=== PATIENT | female | born 1990 | race Caucasian/White ===

== ENCOUNTER 2024-11-30 07:17 | Emergency (ER) | payer BC, SELFPAY ==
[2024-11-30 07:17] VITALS: BP 127/80; PULSE 115; RESP 18; TEMP 36.8; O2SAT 98; BMI 43.9
--- NOTE | 2024-11-30 07:22 | EDS_ITS ---
HPI HPI - GI History of Present Illness Chief Complaint: Nausea/Vomiting/Diarrhea Informant: patient Abdominal Pain/Flank Pain Onset: Weeks (2) Context: Gradual Onset Timing: Continuous Quality: Cramping Location: Diffuse Worsened by: - (Worse in the morning) Relieved by: Nothing Nausea/Vomiting/Emesis GI Symptom: Positive for Nausea and Vomiting Onset: Weeks (2) Quality: Positive for Nonbilious; Negative for Blood streaks, Coffee ground or Hematemesis Diarrhea/Melena/Hematochezia GI Symptom: Positive for Diarrhea; Negative for Melena or Hematochezia Onset: Weeks (2) Stool Quality: Positive for Watery Associated Symptoms Associated Symptoms: Negative for Dysuria, Frequency or Hematuria Narrative Narrative: Patient presents with abdominal pain, nausea, vomiting, diarrhea constant for the past couple weeks. Patient states she is unable to get into see her GI doctor. Patient states her pain is constant. Patient describes it as cramping. Patient states it is diffuse across her entire abdomen. Patient admits to some nausea and vomiting. Patient denies any hematemesis or coffee-ground emesis. Patient states her nausea and vomiting is worse in the morning. Patient states her diarrhea is watery. Patient denies any melena or hematochezia. Patient dates her last menstrual period was last week. [facility] Medical History (Updated 11/30/24 @ 10:[address] Miguel Woods, DO) Depression Anxiety Hernia Medical History no medical history no medical history Home Medications ?Medication ?Instructions ?Recorded ?Last Taken ?Type cholestyramine (with sugar) 4 gram 1 ea PO DAILY 11/30 Unknown History powder for susp in a packet clonazepam 0.5 mg tablet 0.5 mg PO DAILY 11/30/24 Unk nown History famotidine 20 mg tablet 20 mg PO DAILY 11/30/24 Unkn own History hydroxyzine HCl 10 mg tablet 10 mg PO TID 11/30/24 Unk nown History hydroxyzine HCl 50 mg tablet 50 mg PO QHS 11/30/24 Unk nown History ibuprofen 800 mg tablet 800 mg PO TID 11/30/24 Unkno wn History lurasidone 40 mg tablet 40 mg PO DAILY 11/30/24 Unkn own History ondansetron HCl 4 mg tablet PO 11/30/24 Unknown Histor y pantoprazole 40 mg tablet,delayed 40 mg PO DAILY 11/30 Unknown History release prazosin 2 mg capsule 2 mg PO QHS 11/30/24 Unknown History promethazine 25 mg rectal mg RI BID 11/30/24 Unknown H istory suppository promethazine 25 mg tablet 25 mg PO Q6H PRN PRN nausea and 11/30/24 Unknown History vomiting spironolactone 50 mg tablet 50 mg PO BID 11/30/24 Unkn own History Allergy/AdvReac Type Severity Reaction Status Date / Time No Known Allergies Allergy Verified 11/30/24 07:18 Family History no significant family his Surgical History Hx of cholecystectomy Social History (Updated 11/30/24 @ 07:[address] Miguel Woods, DO) Smoking Status: Current every day smoker tobacco type: e-cigarettes Electronic Cigarette Use: with nicotine ROS ROS ED Constitutional Constitutional ED: Denies chills or fever(s) Eyes Eyes: Denies blurry vision or change in vision ENT ENT ED: Denies rhinorrhea or sore throat Cardiovascular Cardiovascular: Denies chest pain or palpitations Respiratory/Chest Respiratory/Chest: Denies cough or dyspnea Gastrointestinal Gastrointestinal: Reports abdominal pain, diarrhea, nausea and vomiting; Denies melena Genitourinary Genitourinary ED: Denies dysuria or hematuria Musculoskeletal Musculoskeletal: Denies back pain or neck pain Integumentary Denies abscess or rash Neurologic Neurologic: Denies headache(s) or weakness Allergic/Immunologic Allergic/Immunologic ED: Denies mouth swelling or urticaria EXAM Physical Exam Const Vital Signs: 11/30/24 07:17 11/30/24 08:57 11/30/24 10:00 Temperature 98.3 F Temperature Source Oral Pulse Rate 115 H 86 85 Respiratory Rate 18 16 16 Blood Pressure 127/80 H 95/54 L 107/79 Blood Pressure Mean 95 67 88 Pulse Ox 98 98 98 Oxygen Delivery Method Room Air Room Air Room Air Positive well nourished and well developed General Appearance ED: well developed and NAD HEENT Reports moist mucous membranes Neck supple and no JVD Resp normal respiratory effort and clear to auscultation bilaterally Cardio regular rhythm Rate: tachycardic GI non-distended Palpation: soft and tender epigastric, LUQ and RUQ; Negative for guarding or rebound tenderness present Neuro CN's II-XII intact bilaterally, moves all extremities and no sensory deficits noted Sensorium / Orientation: alert Motor Exam: strength 5/5 throughout Psych mental status grossly normal and thought process normal Activity / Motor Behavior: appropriate eye contact Speech: soft Mood & Affect: depressed and flat affect MDM MDM MDM Narrative Medical decision making narrative: Differential diagnosis includes gastroenteritis, viral illness, electrolyte abnormality, dehydration, peptic ulcer disease, duodenal ulcer, pancreatitis, colitis, urinary tract infection, , and pyelonephritis. CBC will be obtained to assess for leukocytosis and anemia. Comprehensive metabolic profile will be obtained to assess for hepatic function, renal function, and electrolyte abnormality. Lipase will be obtained to assess for pancreatitis. Urinalysis will be obtained to assess for urinary tract infection and hematuria. CT scan of the abdomen and pelvis will be obtained to assess for bowel obstruction, perforation, colitis, and pancreatitis. Stool for C. difficile will be obtained to assess for C. difficile colitis. History & Record Review Additional record(s) reviewed:: No prior records Lab Data Attestation: I reviewed the patient's lab results. Lab results narrative: CBC was reviewed and was within normal limits. Comprehensive metabolic profile was reviewed and was essentially within normal limits. Lipase was reviewed and was normal at 36. Serum hCG was reviewed and was negative. Urinalysis was reviewed. There is no evidence of urinary tract infection or hematuria. Labs: Laboratory Results - last 24 hr 11/30/24 11/30/24 07:35 08:28 WBC 9.6 RBC 4.77 Hgb 14.3 Hct 41.9 MCV 87.8 MCH 30.0 MCHC 34.1 RDW Std Deviation 42.0 RDW Coeff of Mary 13.0 Plt Count 292 MPV 10.5 Immature Gran % (Auto) 1.300 H Neut % (Auto) 72.0 H Lymph % (Auto) 19.5 Haakon % (Auto) 4.8 Eos % (Auto) 2.0 Baso % (Auto) 0.4 Absolute Neuts (auto) 6.9 Absolute Lymphs (auto) 1.88 Nucleated RBC % 0 Sodium 137 Potassium 3.9 Chloride 105 Carbon Dioxide 21.7 Anion Gap 11 BUN 11 Creatinine 0.78 Estim Creat Clear Calc 125.03 Est GFR (MDRD) Non-Af 103 BUN/Creatinine Ratio 13.9 Glucose 112 H Calcium 9.2 Total Bilirubin 0.20 AST 25 ALT 27 Alkaline Phosphatase 108 H Total Protein 7.5 Albumin 4.5 Globulin 2.9 Albumin/Globulin Ratio 1.5 Lipase 36 Serum , Qual NEGATIVE Urine Color Yellow Urine Clarity Sl. Cloudy Urine pH 6.0 Ur Specific [place] 1.015 Urine Protein 15 H Urine Glucose (UA) Normal Urine Ketones Negative Urine Occult Blood 10 H Urine Nitrite Negative Urine Bilirubin Negative Urine Urobilinogen Normal Ur Leukocyte Esterase Negative Urine RBC 0 SEEN Urine WBC 0 SEEN Ur Squamous Epith Cells 0-5 SEEN Urine Bacteria 0 SEEN Urine Mucus 0 SEEN Radiography Diagnostic Testing: Clinical Impression(s) from Imaging Studies Abdomen/Pelvis CT 11/30/24 07:37 IMPRESSION: 1. Left adnexal cyst. 2. Prior cholecystectomy. 3. 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 4. No acute process is otherwise identified. OVERALL FINAL ASSESSMENT: LI-RADS 1 definitely benign. LI-RADS is not meant to be used in patients <18 years or patients with cirrhosis due to congenital hepatic fibrosis or due to vascular disorders, because these patients have a lower chance of developing HCC. Reading Location: [place] [id number] CT scan of the abdomen and pelvis was obtained. There is a left adnexal cyst. There is no evidence of obstruction or perforation. There is no acute process noted. This was interpreted by the radiologist and was also independently reviewed by myself. Treatment and Re-Evaluation :: Patient was given IV fluids, morphine, and Zofran. Patient was advised of her findings. Patient was unable provide stool specimen here in the emergency department. Patient was instructed to follow-up with her primary care physician and rib stiffener and heel dipper in 5 to 7 days. Patient understood and was agreeable with the plan. All questions were answered. Discharge Plan Triage Chief Complaint: Nausea/Vomiting/Diarrhea ED Provider: Miguel Woods Dx/Rx/DC Orders Clinical Impression: Nausea vomiting and diarrhea Instructions: ED Diarrhea, Unknown Cause, ED Vomiting (Adult) Prescriptions: No Action ibuprofen 800 mg tablet 800 mg PO TID promethazine 25 mg suppository RI BID ondansetron HCl 4 mg tablet PO clonazepam 0.5 mg tablet 0.5 mg PO DAILY hydroxyzine HCl 50 mg tablet 50 mg PO QHS famotidine 20 mg tablet 20 mg PO DAILY pantoprazole 40 mg tablet,delayed release (DR/EC) 40 mg PO DAILY promethazine 25 mg tablet 25 mg PO Q6H PRN PRN (Reason: nausea and vomiting) hydroxyzine HCl 10 mg tablet 10 mg PO TID prazosin 2 mg capsule 2 mg PO QHS cholestyramine (with sugar) 4 gram powder in packet 1 ea PO DAILY lurasidone 40 mg tablet 40 mg PO DAILY spironolactone 50 mg tablet 50 mg PO BID Primary Care Provider: Deisy Jaramillo Referrals: Deisy Jaramillo, [employer]GER[facility] [Primary Care Provider] - 5-7 Days Print Language: Yoruba Disposition Disposition: Home, Self Care
--- NOTE | 2024-11-30 07:37 | CT_ITS ---
PROCEDURE: ABDOMEN/PELVIS W IV CONT ONLY 11/30/2024 REASON FOR EXAM: ABDOMINAL PAIN TECHNIQUE: Abdomen and pelvis CT with intravenous contrast. Coronal and Sagittal reconstruction series were provided. PATIENT PREPARATION: Per protocol ORAL CONTRAST TYPE: None. CONTRAST: Isovue-300 VOLUME: 90 ML IV. One or more dose reduction techniques were used (e.g., Automated exposure control, adjustment of the mA and/or kV according to patient size, use of iterative reconstruction technique. RADIATION DOSE SUMMARY: DLP: 1199.81 mGycm COMPARISON: None. FINDINGS: Lung bases: Clear. Liver: Normal size. No mass. Gallbladder: Surgically absent. Spleen: Normal size. Pancreas: Normal size without evidence of mass surrounding inflammation or ductal dilation. 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 No renal calculus or hydronephrosis is seen Bladder: Unremarkable. Reproductive Organs: An intrauterine device is in place. A left adnexal cyst is measured at 4.0 x 3.2 x 3.2 cm. Bowel: No bowel obstruction. Appendix: No evidence of appendicitis Lymph nodes: Unremarkable. Vasculature: The abdominal aorta and IVC are normal. Peritoneum / Retroperitoneum: No free intraperitoneal fluid is noted. Bones: No acute osseous process is noted CT/Abdomen/Pelvis W IV Cont ONLY IMPRESSION: 1. Left adnexal cyst. 2. Prior cholecystectomy. 3. 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 4. No acute process is otherwise identified. OVERALL FINAL ASSESSMENT: LI-RADS 1 definitely benign. LI-RADS is not meant to be used in patients <18 years or patients with cirrhosi s due to congenital hepatic fibrosis or due to vascular disorders, because these patients have a lower chance of developing HC C. Reading Location: [place] [id number]
[2024-11-30] MEDS: 0.9% Normal Saline (1000mL) 1,000 ML 999 ML IV (07:47)
[2024-11-30] MEDS: Morphine 4 MG/ML Syringe IV (07:47)
[2024-11-30] MEDS: Ondansetron 4 MG/2 ML Vial IV (07:47)
[2024-11-30 07:48] LABS: Absolute Lymphocyte Count 1.88 X10^3/uL (0.83-4.51); Absolute Neutrophil Count 6.9 X10^3/uL (2.0-7.7); Basophil# 0.04 X10^3/uL; Basophil% 0.4 % (0-1); Eosinophil# 0.19 X10^3/uL; Hematocrit 41.9 % (37-47); Hemoglobin 14.3 g/dL (12.0-15.0); Lymphocyte # 1.88 X10^3/ul (0.83-4.51); Lymphocyte % 19.5 % (19-41); Mean Corp Hgb Conc 34.1 g/dL (32-36); Mean Corpuscular Volume 87.8 fL (81-99); Mean Platelet Vol. 10.5 fl (6.2-12.0); Monocyte# 0.46 X10^3/uL; Monocyte% 4.8 % (0-10); NRBC Flagged by Analyzer 0 % (0-5); Neutrophil # 6.93 X10^3/uL (2.7-7.7); Platelet Count 292 K/mm3 (150-450); Red Blood Count 4.77 M/mm3 (4.2-5.4); White Blood Count 9.6 K/mm3 (4.4-11.0)
[2024-11-30 07:58] LABS: Internal QC Validated? YES +Cl - CLEAR BKGD; Pregnancy, Serum, hCG Quali. NEGATIVE Negative
[2024-11-30 08:35] LABS: Bacteria 0 SEEN /hpf (None Seen); Mucous, Urine 0 SEEN /hpf (<or=2+); Red Blood Cells-Urine 0 SEEN /hpf (0-5); White Blood Cells 0 SEEN /hpf (0-5)
[2024-11-30 08:48] LABS: ALB/GLOB Ratio 1.5 RATIO (0.9-2.4); AST(SGOT) 25 U/L (<=31); Alanine Aminotransfer ALT/SGPT 27 U/L (<=34); Albumin, Serum 4.5 g/dL (3.5-5.0); Alkaline Phosphatase 108 U/L (35-104); Anion Gap 11 (5-15); BUN 11 mg/dL (4-19); BUN/Creat Ratio 13.9 RATIO (10-20); Calcium,Total 9.2 mg/dL (7.6-11.0); Carbon Dioxide 21.7 mmol/L (21.0-32.0); Chloride 105 mmol/L (98-108); Creatinine, Serum 0.78 mg/dL (0.70-1.20); EST Glomerular Filtration Rate 103 (>60); Estimated Creatinine Clearance 125.03 ml/min (50-250); Globulin 2.9 g/dL (2.2-4.2); Glucose 112 mg/dL (70-99); Lipase 36 U/L (13-75); Potassium 3.9 mmol/L (3.3-5.1); Protein, Total 7.5 g/dL (5.9-8.4); Sodium Level 137 mmol/L (133-145)
[2024-11-30 08:50] LABS: Color, Urine Yellow (Yellow); Glucose, Dipstick Normal (Normal); Ketone-Dipstick Negative (Negative); Leukocyte Esterase-Dipstick Negative /ul (Negative); Nitrite-Dipstick Negative (Negative); Occult Blood-Urine 10 /ul (Negative); Protein-Dipstick 15 mg/dl (Negative); Specific Gravity, Urine 1.015 (1.002-1.030); Urine Bilirubin Dipstick Negative (Negative); Urine Clarity Sl. Cloudy (Clear); Urine Urobilinogen Normal (Normal)
[2024-11-30 08:57] VITALS: BP 95/54; PULSE 86; RESP 16; O2SAT 98
[2024-11-30 09:10] LABS: Squamous Epithelial Cells - UA 0-5 SEEN /hpf (5-10)
[2024-11-30 10:00] VITALS: BP 107/79; PULSE 85; RESP 16; O2SAT 98
[2024-11-30 10:56] VITALS: BP 107/72; PULSE 72; RESP 15; TEMP 36.6; O2SAT 100
== END 2024-11-30 10:57 | disposition home or self-care (01) ==
PROVIDERS: Emergency Provider Emergency Medicine; PCP Nurse Practitioner Family; Visit Provider Emergency Medicine
DX: R11.2 Nausea with vomiting, unspecified (principal); R10.9 Unspecified abdominal pain; F17.290 Nicotine dependence, other tobacco product, uncomplicated; R19.7 Diarrhea, unspecified; Z79.899 Other long term (current) drug therapy; F32.A Depression, unspecified; F41.9 Anxiety disorder, unspecified; Z90.49 Acquired absence of other specified parts of digestive tract
CPT/HCPCS: 74177; 80053; 81001; 83690; 84703; 85025; 96361; 96374; 96375; 99283; Q9967; A4216; J2405